=== PATIENT | male | born 1990 | race Caucasian/White ===

== ENCOUNTER 2023-07-28 12:03 | Emergency (ER) | payer OTHER, SELFPAY ==
--- NOTE | ~2023-07-28 | XR_ITS ---
EXAMINATION: XR hand RT min 3V DATE: 07/28/2023 12:33 INDICATION: Right hand injury. TECHNIQUE: 4 views of right hand were obtained. COMPARISON: None. FINDINGS: Bone alignment is normal. No fracture. Joint spaces are normal. 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 IMPRESSION: 1. No acute fracture. Reviewed, dictated and finalized at location A. IMPRESSION: 1. No acute fracture.
[2023-07-28 12:14] VITALS: BP 136/94; PULSE 97; RESP 16; TEMP 36.4; O2SAT 100
--- NOTE | 2023-07-28 14:06 | ED.UPPEXIN ---
HPI - Extremity Injury (Upper) General Chief Complaint: Extremity Injury, Upper Stated Complaint: R. hand injury Time Seen by Provider: 07/28/23 13:38 Source: patient Mode of arrival: ambulatory Limitations: no limitations History of Present Illness HPI narrative: R hand dominant male presents with R hand injury he sustained when he punched a wall. He denies it being done in anger. Denies contact with another human. States he was goofing around. Experiencing numbness in his entire hand. Has not yet taken anything for pain. When he moves his wrist he experiences pain from his 5th digit radiating superiorly up his forearm. Does not have a PCP. Related Data Allergies Allergy/AdvReac Type Severity Reaction Status Date / Time No Known Allergies Allergy Verified 07/28/23 12:20 [facility] Past Medical History Medical History (Updated 08/02/23 @ 14:58 by Kiya Martinez MD) Right hand dominant Family History Family History (Updated 10/26/15 @ 23:19 by DOCTOR UNKNOWN) Father Hypertension Family history of diabetes mellitus in first degree relative Social History Social History Second hand tobacco smoke exposure: Yes Alcohol intake: current Exam Narrative: GENERAL: Well-appearing, well-nourished, and in no acute distress. HEAD: Normocephalic, atraumatic. EYES: Non injected, non icteric ENT: Nares clear, no rhinorrhea or epistaxis. NECK: Supple. CHEST: Speaking in full sentences. No respiratory distress. HEART: Regular rate and rhythm. 2+ radial pulse. No pallor or cyanosis. ABDOMEN: Soft, nondistended. EXTREMITIES: Normal range of motion. Mild swelling with faint ecchymosis along dorsum of hand. Normal tenodysis. Not held in fixed flexion or extension but able to demonstrate these movements fully in R hand. Sensation intact to touch throughout digits and wrist. Demonstrates flexion and extension of wrist. No snuffbox tenderness or bony point tenderness elsewhere. SKIN: Warm, dry, no rash. NEURO: No focal deficits. Alert and oriented x3. PSYCH: Normal mood and affect. Course Vital Signs Vital signs: Vital Signs Temperature 97.5 F L 07/28/23 12:14 Pulse Rate 97 07/28/23 12:14 Respiratory Rate 16 07/28/23 12:14 Blood Pressure 136/94 H 07/28/23 12:14 Pulse Oximetry 100 07/28/23 12:14 Oxygen Delivery Room Air 07/28/23 12:14 Temperature 97.5 F L 07/28/23 12:14 Pulse Rate 97 07/28/23 12:14 Respiratory Rate 16 07/28/23 12:14 Blood Pressure 136/94 H 07/28/23 12:14 Pulse Oximetry 100 07/28/23 12:14 Oxygen Delivery Room Air 07/28/23 12:14 MDM - Extremity Injury (Upper) MDM Narrative Medical decision making narrative: R hand dominant male presents with right hand injury after punching a wall. Describes pain along 5th digit and wrist. In the ED he is afebrile with VS that show elevation in diastolic blood pressure. Imaging negative and with reassuring physical exam. Considered possible occult scaphoid fracture and potential complication of nonunion and avascular necrosis however patient is without snuffbox tenderness. Provided outpaient management instructions and PCP contact info in addition to written and verbal instructions on R-I-C.E. Differential Diagnosis Differential diagnosis: Likely finger sprain, dislocation of finger, fracture of hand and other (Boxer's fracture; occult scaphoid fracture) Imaging Data Radiologist's impression: IMPRESSION: 1. No acute fracture. Discharge Plan Discharge Clinical Impression: Sprain and strain of wrist Patient Disposition: Home, Self-Care Condition: Stable Instructions: Antibiotic Form, Hand Sprain (ED), Wrist Sprain (ED) Additional Instructions: No fracture on imaging. You can take the prescribed medications to help with pain. They are safe to take together. If you would like you can purchase a commercial over the counter device to use as a temporary brace/support. Follow up with connie kaiser
[2023-07-28] MEDS: ACETAMINOPHEN 500 MG TABLET 1000 MG PO (14:59)
[2023-07-28] MEDS: IBUPROFEN 600 MG TABLET PO (14:59)
== END 2023-07-28 15:05 | disposition home or self-care (01) ==
LOC: ANHED 14:27
PROVIDERS: Emergency Provider Student in an Organized Health Care Education/Training Program; Referring Provider Family Medicine
DX: S63.501A Unspecified sprain of right wrist, initial encounter (principal); S66.911A Strain of unspecified muscle, fascia and tendon at wrist and hand level, right hand, initial encounter; Z77.22 Contact with and (suspected) exposure to environmental tobacco smoke (acute) (chronic); W22.01XA Walked into wall, initial encounter
CPT/HCPCS: 73130; 99283; A9270